=== PATIENT | female | born 1950 | race Caucasian/White ===

== ENCOUNTER → 2017-08-26 | Outpatient (CLI) | payer OTHER ==
[~2017-08-26] MED LIST: AMIT25TA19 PO; ATOR-24 PO; CLOP1TAB15 PO; DIAZ5TAB PO; ENAL10TA88 PO; FLUO40CA8 PO; GLC850 PO; IBUP-1428 PO; METO25TA3 PO; POTA-327 PO; PREG200C PO
--- NOTE | 2017-08-26 09:55 | DIAGNOSTIC IMAGING REPORT ---
CHEST 2 VIEWS ROUTINE CLINICAL HISTORY: 67 years-old Female presenting with I25.10 CAD in [place] [id number]. TECHNIQUE: PA and lateral views of the chest were obtained. COMPARISON: 10/10/2014. FINDINGS: Atherosclerosis of the aortic arch. Cardiac silhouette normal in size. Coronary artery stent or coronary artery calcification noted. Lungs and pleural spaces clear. Degenerative changes of the thoracic spine. Upper abdomen normal. Surgical clips in the right axilla. IMPRESSION: 1. No acute cardiopulmonary disease. Electronically signed by: Juan Carlos Das M.D. 08/26/2017 9:54 AM Dictated Date/Time: 08/26/2017 9:53 AM
== END | disposition home or self-care (01) ==
LOC: C.RAD1850 09:36
PROVIDERS: ATTEND Internal Medicine Pulmonary Disease
DX: I25.10 Atherosclerotic heart disease of native coronary artery without angina pectoris (principal)

== ENCOUNTER → 2017-09-11 | Outpatient (CLI) | payer OTHER ==
[2017-09-11 15:18] LABS: BASO % 0.5 %; BASO ABS # 0.02 K/uL (0-0.2); EOS % 2.1 %; EOS ABS # 0.09 K/uL (0-0.5); HEMATOCRIT 32.2 % (37-47); HEMOGLOBIN 10.2 g/dL (12.0-16.0); IG# 0.01 K/uL (0.00-0.02); LYMPH % 28.5 %; MEAN CELL VOLUME 62.8 fL (80-100); MEAN CORPUSCULAR HEMOGLOBIN 19.9 pg (25-34); MEAN CORPUSCULAR HGB CONC 31.7 g/dl (32-36); MONO % 10.5 %; MONO ABS # 0.44 K/uL (0.11-0.59); NEUT % 58.2 %; NEUT ABS # 2.45 K/uL (1.4-6.5); NUCLEATED RED BLOOD CELL ABS 0.02 K/uL (0-0); PLATELET COUNT 210 K/uL (130-400); RED CELL DISTRIBUTION WIDTH CV 18.1 % (11.5-14.5); RED CELL DISTRIBUTION WIDTH SD 38.8 fL (36.4-46.3); WHITE BLOOD COUNT 4.21 K/uL (4.8-10.8)
[2017-09-11 15:59] LABS: ALT/SGPT 36 U/L (12-78); AST/SGOT 22 U/L (15-37); BLOOD UREA NITROGEN 26 mg/dl (7-18); CALCIUM 9.3 mg/dl (8.5-10.1); CARBON DIOXIDE 22 mmol/L (21-32); CREATININE 1.17 mg/dl (0.60-1.20); GLUCOSE 86 mg/dl (70-99); POTASSIUM 4.4 mmol/L (3.5-5.1); SODIUM 137 mmol/L (136-145)
[2017-09-12 07:20] LABS: HEMOGLOBIN A1C 5.6 % (4.5-5.6)
== END | disposition home or self-care (01) ==
LOC: C.LAB1850 14:01
PROVIDERS: ATTEND Internal Medicine
DX: E03.9 Hypothyroidism, unspecified (principal); E78.00 Pure hypercholesterolemia, unspecified; D64.9 Anemia, unspecified; E11.9 Type 2 diabetes mellitus without complications; N28.9 Disorder of kidney and ureter, unspecified

== ENCOUNTER 2019-08-31 14:51 | Observation (INO) ==
--- NOTE | 2019-08-31 16:26 | XRay Report ---
XR chest 1V portable CLINICAL HISTORY: Dyspnea dyspnea COMPARISON STUDY: 05/03/2013 FINDINGS: Minimal platelike atelectasis left base. Lungs otherwise appear clear. Diaphragms are deon h. Prior right acromioclavicular operative change. IMPRESSION: Platelike atelectasis left base. Otherwise negative study. ACT 112: Negative or not required by law. The above report was generated using voice recognition software. It may contain grammatical, syntax or spelling errors. Electronically signed by: Kaz Shelton M.D. 08/31/2019 4:24 PM
--- NOTE | 2019-08-31 16:45 | Electrocardiogram Report ---
Test Reason : Blood Pressure : / mmHG Vent. Rate : 102 BPM Atrial Rate : 102 BPM P-R Int : 160 ms QRS Dur : 080 ms QT Int : 340 ms P-R-T Axes : 074 -05 069 degrees QTc Int : 443 ms Sinus tachycardia Possible Left atrial enlargement Borderline ECG When compared with ECG of 12-APR-2011 17:55, Vent. rate has increased BY 42 BPM Nonspecific T wave abnormality no longer evident in Inferior leads Confirmed by Surinder Ramos ([id number]) on 08/31/2019 4:44:51 PM Referred By: Confirmed By:Surinder Ramos
[2019-08-31 17:13] LABS: Basophils # (auto) 0.02 K/uL (0-0.2); Basophils % (auto) 0.3 %; Eosinophils # (auto) 0.13 K/uL (0-0.5); Eosinophils % (auto) 2.2 %; Hematocrit (blood only) 33.6 % (37-47); Hemoglobin 10.8 g/dL (12.0-16.0); Immature Granulocytes # (auto) 0.01 K/uL (0.00-0.02); Immature Granulocytes % (auto) 0.2 %; Lymphocytes % (auto) 39.1 %; Mean Corpuscular Hemoglobin 20.3 pg (25-34); Mean Corpuscular Hgb Conc 32.1 g/dL (32-36); Mean Corpuscular Volume 63.3 fL (80-100); Monocytes % (auto) 8.5 %; Neutrophils # (auto) 2.92 K/uL (1.4-6.5); Neutrophils % (auto) 49.7 %; Platelet Count 229 K/uL (130-400); RDW Coefficient of Variation 18.6 % (11.5-14.5); Red Blood Count 5.31 M/uL (4.2-5.4); White Blood Count 5.88 K/uL (4.8-10.8)
[2019-08-31 17:29] LABS: Alanine Aminotransferase 36 U/L (12-78); Albumin Level 3.6 gm/dl (3.4-5.0); Aspartate Aminotransferase 24 U/L (15-37); BUN Creatinine Ratio 25.3 (10-20); Blood Urea Nitrogen 28 mg/dl (7-18); Calcium 9.5 mg/dl (8.5-10.1); Carbon Dioxide 24 mmol/L (21-32); Chloride 103 mmol/L (98-107); Creatinine Clr Calc Pharmacy 53.5 ml/min; Est GFR (African American) 59.1; Glucose 128 mg/dl (70-99); Magnesium 1.3 mg/dl (1.8-2.4); Potassium 4.2 mmol/L (3.5-5.1); Sodium 136 mmol/L (136-145)
[2019-08-31 17:34] LABS: Alkaline Phosphatase 69 U/L (45-117); Bilirubin,Total 0.4 mg/dl (0.2-1); Globulin 3.5 gm/dl (2.5-4.0); NT Pro B Type Natriuretic Pept 82 pg/ml (0-900); Total Protein 7.1 gm/dl (6.4-8.2); Troponin I < 0.015 ng/ml (0-0.045)
[2019-08-31 17:43] LABS: Hypochromasia Present; Microcytosis Present; Ovalocytes 2+; Poikilocytosis Present; Polychromasia 1+; Schistocytes Occasional
[2019-08-31] MEDS ORDERED: OPTIRAY 320 125ml IV PRN (17:51)
[2019-08-31] MEDS ORDERED: MAGNESIUM OXIDE 400 MG TAB PO STA (17:51)
[2019-08-31] MEDS ORDERED: SODIUM CHLORIDE 0.9% 1000ML 500 ML IV ONE (17:51)
--- NOTE | 2019-08-31 18:02 | CT Scan Report ---
CT angio chest PE protocol CT DOSE: 358.10 mGy.cm HISTORY: Chest pain. Dyspnea. h/o PEs w/ worsening exertional dyspnea TECHNIQUE: Multiaxial CT images of the chest were performed following the intravenous administration of contrast to evaluate the pulmonary arteries. Maximal intensity projection images were also obtaine d. A dose lowering technique was utilized adhering to the principles of ALARA. COMPARISON STUDY: Chest x-ray 08/31/2019 FINDINGS: There is a normal caliber thoracic aorta with no evidence for dissection. There is no evide nce for pulmonary embolus. No pleural effusions. No pneumothorax. The liver and spleen are unremarkab le. No mediastinal or hilar lymphadenopathy. The central airways are patent. The lungs are clear. Sca ttered bibasilar atelectatic and/or pleural reactive change. IMPRESSION: 1. No evidence for pulmonary embolus. 2. Lungs are considered clear. 3. Minimal scattered bibasilar atelectatic change. ACT 112: Negative or not required by law. The above report was generated using voice recognition software. It may contain grammatical, syntax or spelling errors. Electronically signed by: Kaz Shelton M.D. 08/31/2019 6:00 PM
[2019-08-31] MEDS ORDERED: ASPIRIN CHEW 324 MG PO STA (20:01)
[2019-08-31] MEDS ORDERED: NITROGLYCERIN SL 0.4 MG/TAB TAB SL STA (20:01)
--- NOTE | 2019-08-31 20:45 | Emergency Department Note ---
Entered by Cheyenne Malloy acting as a scribe for History of Present Illness General Chief complaint: Shortness of Breath/Dyspnea Stated complaint: SOB, FAINTING FEELING Time Seen by Provider: 08/31/19 16:04 Source: patient History of Present Illness Provider complaint: Shortness of Breath/Dyspnea Onset (ago): day(s) 2 Location: chest Radiation: non-radiation Relieved By: + none Exacerbated By: + none Associated symptoms: + chest pain and + syncope; no cough and no fever/chills The patient is a 69 year old female w/ PMHx of Leiden mutation, pulmonary embolism, DVT, anemia, asthma, CAD, depression, fibromyalgia, hypercholesterolemia, hypertension, hypothyroidism, osteopenia, renal insufficiency, sarcoidosis of lung, and type II diabetes who presents to the ED w/ CC of shortness of breath/dyspnea beginning 2 days ago. The patient states that she was diagnosed with pulmonary embolisms and a DVT at [facility] and discharged on August 21. On July 09 the patient notes that she had a meniscus repair and began noticing shortness of breath afterwards. The patient states that her symptoms are not relieved nor exacerbated by anything specific. The patient reports experiencing chest pain and has been having syncopal episodes for the last 2 days. The patient denies experiencing any cough or fever/chills. The patient notes that she was switched from 10mg to 5mg of Eliquis and notes that her symptoms are similar to when she had a heart blockage. Home Medications Home Medications Medication Instructions Recorded Confirmed Type cholecalciferol (vitamin D3) 125 5,000 units PO BID cap 04/02/19 08/31/19 History mcg (5,000 unit) capsule enalapril maleate 5 mg tablet 5 mg PO HS #90 tab 04/02/19 08/31/19 History hydroxyzine HCl 50 mg tablet 50 mg PO QID PRN tab 04/02/19 08/31/19 History multivitamin 1 tab PO QAM 04/02/19 08/31/19 History diazepam 10 mg tablet 10 - 20 mg PO UD PRN tab 05/04/19 08/31/19 History metoprolol succinate 25 mg 25 mg PO QAM 05/04/19 08/31/19 History tablet,extended release 24 hr nitroglycerin 0.4 mg sublingual 0.4 mg SL Q5M PRN #30 tab 05/04/19 08/31/19 History tablet hydrocodone 10 mg-acetaminophen 1 tab PO Q4H PRN tab 05/05/19 08/31/19 History 325 mg tablet apixaban 5 mg tablet 5 mg PO BID #180 tab 08/24/19 08/31/19 Rx baclofen 10 mg tablet 10 mg PO TID PRN 08/24/19 08/31/19 History cyclobenzaprine 10 mg tablet 20 mg PO HS #60 tab 08/24/19 08/31/19 Rx esketamine 84 mg (28 mg x 3) nasal 0 mg INTNAS .Q3W 08/24/19 08/31/19 History spray nystatin-triamcinolone 100,000 1 appln TOPICAL BID PRN #60 gm 08/24/19 08/31/19 Rx unit/gram-0.1 % topical ointment atorvastatin 40 mg PO HS 08/31/19 08/31/19 History clopidogrel 75 mg PO QAM 08/31/19 08/31/19 History coenzyme Q10 [Co Q-10] 100 mg PO BID 08/31/19 08/31/19 History fluoxetine [Prozac] 80 mg PO QAM 08/31/19 08/31/19 History fluticasone propion-salmeterol 1 inh INHALATION BID PRN 08/31/19 08/31/19 History [Advair Diskus] levothyroxine 75 mcg PO QAM 08/31/19 08/31/19 History liothyronine 15 mcg PO QAM 08/31/19 08/31/19 History metformin 1,000 mg PO BIDM 08/31/19 08/31/19 History suvorexant 20 mg PO HS 08/31/19 08/31/19 History Allergies Allergy/AdvReac Type Severity Reaction Status Date / Time nickel Allergy Mild rash Verified 08/31/19 18:45 adhesive Allergy Unknown started Verified 08/31/19 18:45 sarcoidosis up cefazolin Allergy Unknown UNKNOWN Verified 08/31/19 18:45 gabapentin Allergy Unknown Unknown Verified 08/31/19 18:45 nitrofurantoin Allergy Unknown Unknown Verified 08/31/19 18:45 [From Macrobid] pregabalin [From Lyrica] Allergy Unknown Unknown Verified 08/31/19 18:45 tramadol Allergy Unknown ITCH Verified 08/31/19 18:45 ibuprofen Allergy Unknown Verified 08/31/19 18:45 amoxicillin AdvReac Mild diarrhea Verified 08/31/19 18:45 clavulanic acid AdvReac Mild diarrhea Verified 08/31/19 18:45 Past Med/Surg History Medical History Adenomatous polyp of colon (Acute) Adiposis dolorosa (Acute) Anxiety Asthma (Acute) Bleeding disorder Breast cancer Stage 2A HER+ - rx bilateral mastectomy 2001, 2003 CAD in [place] artery (Acute) Depression (Acute) Endometriosis Factor 5 Leiden mutation, heterozygous Fibroids Fibromyalgia (Acute) Hematuria History of chemotherapy History of radiation therapy Hypercholesterolemia (Acute) Hypertension (Acute) Hypothyroidism (Acute) Insomnia (Acute) Lumbar spinal stenosis (Acute) Mild chronic anemia (Acute) Osteopenia (Acute) Painful intercourse PTSD (post-traumatic stress disorder) Pulmonary embolus admitted 08/20-08/22 [facility] Renal insufficiency (Acute) Sarcoidosis of lung (Acute) Sleep apnea (Acute) Thalassemia syndrome (Acute) Thyroid nodule (Acute) Type 2 diabetes mellitus (Acute) Surgical History S/P cardiac catheterization S/P hysterectomy S/P laminectomy S/P mastectomy S/P rotator cuff repair S/P skin biopsy S/P tonsillectomy Status post wisdom tooth extraction Family History Uncle Colorectal cancer Father Dementia Mother Diabetes Grandmother (Maternal) Breast cancer Grandmother (Paternal) Breast cancer Other Anemia Anxiety Depression Drinking problem Family history of bleeding or clotting disorder Fibroids Gestational diabetes Premature labor Denies family history of Cervical cancer Ovarian cancer Prostate cancer Uterine cancer Social History Preferred Language: Guatemalan Communication Ability: Effective Visual Impairment: No Limitations Hearing Ability: Normal Ingredient Handler Required: No Beliefs That Will Affect Care: None marital status: Current Living Situation: Spouse current occupational status: unemployed Feels Safe at Home: Yes Smoking Status: Never smoker Hx Alcohol Use: No Hx Substance Use: No Childhood Exposure to Second-Hand Smoke: Yes Dental Care, Regularly: Yes Physical Activity Frequency: Does not Exercise Seatbelt Use: always Review of Systems See HPI for pertinent positives & negatives. and A total of 10 systems reviewed and were otherwise negative Physical Exam Vital Signs Vital Signs - 24 hr 08/31/19 15:18 08/31/19 16:32 08/31/19 20:12 Temperature 36.7 C Temperature Source Oral Pulse Rate 97 H 93 H 87 Pulse Rate [Finger] 96 H Pulse Rate from SpO2 Sensor 87 Respiratory Rate 22 18 18 Respiratory Effort / Characteristics Non-Labored Respiratory Depth Normal Respiratory Pattern Regular Blood Pressure 170/109 H 126/84 124/77 Blood Pressure [Left Arm] 126/84 Blood Pressure Mean 129 101 97 Blood Pressure Mean [Left Arm] 98 Blood Pressure Position Lying Pulse Oximetry 99 98 96 Oxygen Delivery Method Room Air Sepsis Recent Fever Within 48 Hours No Sepsis New/Unexplained Change in Mental Status No Sepsis Action Taken by Nursing No Action Required 08/31/19 20:14 08/31/19 20:15 08/31/19 20:21 Temperature Temperature Source Pulse Rate 87 93 H Pulse Rate [Finger] 83 Pulse Rate from SpO2 Sensor 86 93 H Respiratory Rate 18 18 18 Respiratory Effort / Characteristics Respiratory Depth Respiratory Pattern Blood Pressure 124/74 93/59 L Blood Pressure [Left Arm] 124/77 Blood Pressure Mean 99 73 Blood Pressure Mean [Left Arm] 92 Blood Pressure Position Pulse Oximetry 96 96 96 Oxygen Delivery Method Room Air Sepsis Recent Fever Within 48 Hours Sepsis New/Unexplained Change in Mental Status Sepsis Action Taken by Nursing 08/31/19 20:25 08/31/19 20:30 08/31/19 20:35 Temperature Temperature Source Pulse Rate 92 H 85 82 Pulse Rate [Finger] Pulse Rate from SpO2 Sensor 92 H 85 83 Respiratory Rate 18 20 19 Respiratory Effort / Characteristics Respiratory Depth Respiratory Pattern Blood Pressure 107/64 130/80 132/82 Blood Pressure [Left Arm] Blood Pressure Mean 82 90 92 Blood Pressure Mean [Left Arm] Blood Pressure Position Pulse Oximetry 96 96 95 Oxygen Delivery Method Sepsis Recent Fever Within 48 Hours Sepsis New/Unexplained Change in Mental Status Sepsis Action Taken by Nursing 08/31/19 20:40 08/31/19 20:45 08/31/19 21:00 Temperature Temperature Source Pulse Rate 82 89 84 Pulse Rate [Finger] Pulse Rate from SpO2 Sensor 82 89 84 Respiratory Rate 19 20 20 Respiratory Effort / Characteristics Respiratory Depth Respiratory Pattern Blood Pressure 129/86 122/106 H 144/89 H Blood Pressure [Left Arm] Blood Pressure Mean 97 112 95 Blood Pressure Mean [Left Arm] Blood Pressure Position Pulse Oximetry 95 97 95 Oxygen Delivery Method Sepsis Recent Fever Within 48 Hours Sepsis New/Unexplained Change in Mental Status Sepsis Action Taken by Nursing 08/31/19 21:05 08/31/19 21:10 Temperature Temperature Source Pulse Rate 85 84 Pulse Rate [Finger] Pulse Rate from SpO2 Sensor 84 84 Respiratory Rate 20 18 Respiratory Effort / Characteristics Respiratory Depth Respiratory Pattern Blood Pressure 124/75 114/88 Blood Pressure [Left Arm] Blood Pressure Mean 87 96 Blood Pressure Mean [Left Arm] Blood Pressure Position Pulse Oximetry 97 97 Oxygen Delivery Method Sepsis Recent Fever Within 48 Hours Sepsis New/Unexplained Change in Mental Status Sepsis Action Taken by Nursing GENERAL: Well appearing, well nourished, NAD, non-toxic, wearing glasses. EYE EXAM: Normal conjunctiva. PERRL, no anisocoria and EOM's grossly intact w/o pain. OROPHARYNX: Moist mucous membranes. Grossly normal dentition. NECK: Supple, no nuchal rigidity, no adenopathy, non-tender. No signs of meningismus. LUNGS: Clear to auscultation. Normal chest wall mechanics. HEART: NSR, no MRG. ABDOMEN: Abdomen soft, non-tender, normo-active bowel sounds, no masses, no rebound or guarding. BACK: No CVA TTP. SKIN: No rashes and no bruising. UPPER EXTREMITIES: Upper extremities are grossly normal. LOWER EXTREMITIES: No pitting edema. No calf pain. Negative Vidal's sign. NEURO EXAM: A&O x3, cranial nerves II-XII grossly intact, normal speech, moves all 4 extremities on command w/o issue. Course Course 1608: Past medical records reviewed. The patient was evaluated in room B10. A complete history and physical exam was performed. 1838: I reevaluated and discussed test results with the patient. 1933: I spoke with Dr. Gee- Cardiology about the patient's case and he recommends she stay in the hospital for further evaluation. 2001: I reevaluated patient again and she is still experiencing chest discomfort so she will be given an Aspirin and Nitroglycerin. I spoke with Dr. Dixon- Hospitalist about the patient's case and he will accept the patient for further evaluation. Administered Medications Acetaminophen (Tylenol) 650 mg PO Q4H PRN PRN Reason: Pain or Fever Stop: 09/30/19 22:35 Last Admin: 09/01/19 09:36 Dose: 325 mg Documented by: [id number] Hydrocodone Bitart/Acetaminophen ([place] 10/325) 1 tab PO Q4H PRN PRN Reason: Pain Stop: 09/14/19 22:35 Last Admin: 09/01/19 09:35 Dose: 1 tab Documented by: [id number] Apixaban (Eliquis) 5 mg PO BID [facility] Stop: 09/30/19 22:35 Last Admin: 09/01/19 08:09 Dose: 5 mg Documented by: [id number] Admin: 08/31/19 23:17 Dose: 5 mg Documented by: [id number] Clopidogrel Bisulfate (Plavix) 75 mg PO [facility] Stop: 10/01/19 08:59 Last Admin: 09/01/19 08:08 Dose: 75 mg Documented by: [id number] Cyclobenzaprine HCl (Flexeril) 10 mg PO [facility] Stop: 09/30/19 22:59 Last Admin: 08/31/19 23:17 Dose: 10 mg Documented by: [id number] Fluoxetine HCl (Prozac) 80 mg PO [facility] Stop: 10/01/19 08:59 Last Admin: 09/01/19 08:08 Dose: 80 mg Documented by: [id number] Ioversol (Optiray 320 125ml) 119 ml IV ONCE PRN PRN Reason: Interaction Checking Stop: 09/04/19 17:50 Last Admin: 08/31/19 17:51 Dose: 119 ml Documented by: [id number] [facility] Stop: 10/01/19 06:29 Last Admin: 09/01/19 06:15 Dose: 75 mcg Documented by: [id number] Liothyronine Sodium (Cytomel) 15 mcg PO [facility] Stop: 10/01/19 08:59 Last Admin: 09/01/19 08:09 Dose: 15 mcg Documented by: [id number] Metoprolol Succinate (Toprol Xl) 25 mg PO [facility] Stop: 10/01/19 08:59 Last Admin: 09/01/19 08:08 Dose: 25 mg Documented by: [id number] Multivitamins (Multivitamin Tab) 1 tab PO [facility] Stop: 10/01/19 08:59 Last Admin: 09/01/19 08:09 Dose: 1 tab Documented by: [id number] Vitamin D (Vitamin D3) 5,000 units PO BID [facility] Stop: 09/30/19 22:29 Last Admin: 09/01/19 08:08 Dose: 5,000 units Documented by: [id number] Admin: 08/31/19 23:17 Dose: 5,000 units Documented by: [id number] Zolpidem Tartrate (Ambien) 10 mg PO HS PRN PRN Reason: Sleep Stop: 09/30/19 22:49 Last Admin: 08/31/19 23:17 Dose: 10 mg Documented by: [id number] Discontinued Medications Aspirin (Aspirin) 324 mg PO NOW STA Stop: 08/31/19 20:02 Last Admin: 08/31/19 20:13 Dose: 324 mg Documented by: [id number] Sodium Chloride (Nss 1000ml) 500 mls @ 999 mls/hr IV .Q31M ONE Stop: 08/31/19 18:21 Last Infusion: 08/31/19 20:14 Dose: 0 mls/hr Documented by: [id number] Admin: 08/31/19 18:13 Dose: 999 mls/hr Documented by: [id number] Magnesium Oxide (Mag-Ox) 800 mg PO NOW STA Stop: 08/31/19 17:52 Last Admin: 08/31/19 18:13 Dose: 800 mg Documented by: [id number] Nitroglycerin (Nitrostat) 0.4 mg SL NOW STA Stop: 08/31/19 20:02 Last Admin: 08/31/19 20:13 Dose: 0.4 mg Documented by: [id number] Medical Decision Making Differential Diagnosis Differential diagnosis: Etiologies such as infections, reactive airway disease, COPD, pneumonia, pleural effusion, pulmonary edema, ARDS, pneumothorax, CHF, cardiac ischemia, cardiac tamponade, dysrhythmia, anemia, pulmonary embolism, musculoskeletal, gastrointestinal process, as well as others were entertained. Medical Records Attestation: I reviewed the patient's medical records. Home Medications Current Medication List: was personally reviewed by me Laboratory Data Attestation: I reviewed the patient's lab results. Result diagrams: 09/01/19 06:37 09/01/19 06:37 Lab Results 08/31/19 08/31/19 08/31/19 Range/Units 17:01 17:01 17:01 WBC 5.88 (4.8-10.8) K/uL RBC 5.31 (4.2-5.4) M/uL Hgb 10.8 L (12.0-16.0) g/dL Hct 33.6 L (37-47) % MCV 63.3 L (80-100) fL MCH 20.3 L (25-34) pg MCHC 32.1 (32-36) g/dL RDW Std Deviation 42.0 (36.4-46.3) fL RDW Coeff of Meghana 18.6 H (11.5-14.5) % Plt Count 229 (130-400) K/uL Immature Gran % (Auto) 0.2 % Neut % (Auto) 49.7 % Lymph % (Auto) 39.1 % Banks % (Auto) 8.5 % Eos % (Auto) 2.2 % Baso % (Auto) 0.3 % Immature Gran # (Auto) 0.01 (0.00-0.02) K/uL Neut # (Auto) 2.92 (1.4-6.5) K/uL Lymph # (Auto) 2.30 (1.2-3.4) K/uL Banks # (Auto) 0.50 (0.11-0.59) K/uL Eos # (Auto) 0.13 (0-0.5) K/uL Baso # (Auto) 0.02 (0-0.2) K/uL Polychromasia 1+ Hypochromasia Present Poikilocytosis Present Microcytosis Present Ovalocytes 2+ Schistocytes Occasional PT Cancelled INR Cancelled APTT Cancelled PTT Ratio Cancelled Sodium 136 (136-145) mmol/L Potassium 4.2 (3.5-5.1) mmol/L Chloride 103 (98-107) mmol/L Carbon Dioxide 24 (21-32) mmol/L Anion Gap 9.0 (3-11) BUN 28 H (7-18) mg/dl Creatinine 1.11 (0.6-1.2) mg/dl Est Cr Clr Drug Dosing 53.5 ml/min Est GFR ( Amer) 59.1 Est GFR (Non-Af Amer) 51.0 BUN/Creatinine Ratio 25.3 H (10-20) Glucose 128 H (70-99) mg/dl Calcium 9.5 (8.5-10.1) mg/dl Magnesium 1.3 L (1.8-2.4) mg/dl Total Bilirubin 0.4 (0.2-1) mg/dl AST 24 (15-37) U/L ALT 36 (12-78) U/L Alkaline Phosphatase 69 (45-117) U/L Troponin I < 0.015 (0-0.045) ng/ml NT-Pro-B Natriuret Pep 82 (0-900) pg/ml Total Protein 7.1 (6.4-8.2) gm/dl Albumin 3.6 (3.4-5.0) gm/dl Globulin 3.5 (2.5-4.0) gm/dl Albumin/Globulin Ratio 1.0 (0.9-2) /09/16 Range/Units 18:32 WBC (4.8-10.8) K/uL RBC (4.2-5.4) M/uL Hgb (12.0-16.0) g/dL Hct (37-47) % MCV (80-100) fL MCH (25-34) pg MCHC (32-36) g/dL RDW Std Deviation (36.4-46.3) fL RDW Coeff of Meghana (11.5-14.5) % Plt Count (130-400) K/uL Immature Gran % (Auto) % Neut % (Auto) % Lymph % (Auto) % Banks % (Auto) % Eos % (Auto) % Baso % (Auto) % Immature Gran # (Auto) (0.00-0.02) K/uL Neut # (Auto) (1.4-6.5) K/uL Lymph # (Auto) (1.2-3.4) K/uL Banks # (Auto) (0.11-0.59) K/uL Eos # (Auto) (0-0.5) K/uL Baso # (Auto) (0-0.2) K/uL Polychromasia Hypochromasia Poikilocytosis Microcytosis Ovalocytes Schistocytes PT INR APTT PTT Ratio Sodium (136-145) mmol/L Potassium (3.5-5.1) mmol/L Chloride (98-107) mmol/L Carbon Dioxide (21-32) mmol/L Anion Gap (3-11) BUN (7-18) mg/dl Creatinine (0.6-1.2) mg/dl Est Cr Clr Drug Dosing ml/min Est GFR ( Amer) Est GFR (Non-Af Amer) BUN/Creatinine Ratio (10-20) Glucose (70-99) mg/dl Calcium (8.5-10.1) mg/dl Magnesium (1.8-2.4) mg/dl Total Bilirubin (0.2-1) mg/dl AST (15-37) U/L ALT (12-78) U/L Alkaline Phosphatase (45-117) U/L Troponin I 0.019 (0-0.045) ng/ml NT-Pro-B Natriuret Pep (0-900) pg/ml Total Protein (6.4-8.2) gm/dl Albumin (3.4-5.0) gm/dl Globulin (2.5-4.0) gm/dl Albumin/Globulin Ratio (0.9-2) Imaging Data Radiologist's Impression: Radiology results as stated below per my review and the radiologist's interpretation: XR chest 1V portable CLINICAL HISTORY: Dyspnea dyspnea COMPARISON STUDY: 05/03/2013 FINDINGS: Minimal platelike atelectasis left base. Lungs otherwise appear clear. Diaphragms are smooth. Prior right acromioclavicular operative change. IMPRESSION: Platelike atelectasis left base. Otherwise negative study. ACT 112: Negative or not required by law. The above report was generated using voice recognition software. It may contain grammatical, syntax or spelling errors. Electronically signed by: Kaz Shelton M.D. 08/31/2019 4:[address] angio chest PE protocol CT DOSE: 358.10 mGy.cm HISTORY: Chest pain. Dyspnea. h/o PEs w/ worsening exertional dyspnea TECHNIQUE: Multiaxial CT images of the chest were performed following the intravenous administration of contrast to evaluate the pulmonary arteries. Maximal intensity projection images were also obtained. A dose lowering technique was utilized adhering to the principles of ALARA. COMPARISON STUDY: Chest x-ray 08/31/2019 FINDINGS: There is a normal caliber thoracic aorta with no evidence for dissection. There is no evidence for pulmonary embolus. No pleural effusions. No pneumothorax. The liver and spleen are unremarkable. No mediastinal or hilar lymphadenopathy. The central airways are patent. The lungs are clear. Scattered bibasilar atelectatic and/or pleural reactive change. IMPRESSION: 1. No evidence for pulmonary embolus. 2. Lungs are considered clear. 3. Minimal scattered bibasilar atelectatic change. ACT 112: Negative or not required by law. The above report was generated using voice recognition software. It may contain grammatical, syntax or spelling errors. Electronically signed by: Kaz Shelton M.D. 08/31/2019 6:00 PM ECG Data Attestation: I personally reviewed and interpreted this ECG as follows: Indication: + SOB/dyspnea Rate (beats per minute): 102 Rhythm: + sinus tachycardia ECG [place]: + Normal ECG ST segments: + T-wave inversions (aVL); no ST depression and no ST elevation ECG Findings: + Other (Normal intervals) Comparison ECG Date: from (March 2011) Change: the following changes noted (Rate is improved by 42 bpm) Blood Pressure Blood Pressure Findings: Elevated blood pressure Blood Pressure Disposition: further management by hospitalist AKIRA Narrative The patient is a 69 year old female w/ PMHx of Leiden mutation, pulmonary embolism, DVT, anemia, asthma, CAD, depression, fibromyalgia, hypercholesterolemia, hypertension, hypothyroidism, osteopenia, renal insuffic iency, sarcoidosis of lung, and type II diabetes who presents to the ED w/ CC of shortness of breath/dyspnea beginning 2 days ago. 1610: Continuous Cardiac Monitoring: An order was placed for continuous cardiac monitoring. The monitor shows a rate of 102 with sinus tachycardia. Patient was seen and evaluated at the bedside. The patient was presented with some shortness of breath and the patient was recently diagnosed with bilateral PEs and left lower extremity DVT. I did obtain some outpatient records which show that the patient was diagnosed with bilateral PEs but I did not see anything further with regard to the report or the location. The patient did a blood work completed along with a CT Cassandra of the chest. CT of the Cassandra of the chest is negative. Patient's EKG does not show any acute changes but given that the patient states that her symptoms are similar to when she had a prior MN requiring stenting a repeat troponin was ordered. Repeat troponin while not elevated is detectable compared to undetectable with prior. Given this I did speak with the on-call capacity planner who recommended inpatient treatment, stress test and further trending of cardiac enzymes. I did speak the on-call hospitalist agreed to further evaluate treat the patient. The patient was given aspirin as well as 1 sublingual nitro she complained of some very mild dull jose e st discomfort. Impression & Plan Atypical chest pain, History of coronary artery disease Discharge Plan Visit Data *Final* Discharge Date/Time: 08/31/19 22:23 Chief Complaint: Shortness of Breath/Dyspnea Stated Complaint: SOB, FAINTING FEELING ED Provider: Robert Morrison Discharge Problem: Atypical chest pain, History of coronary artery disease Patient Disposition: Admitted As Inpatient Discharge Instructions Interventions: ED Discharge Assessment Last Done: 08/31/19 22:23 The scribe's documentation has been prepared under my direction and personally reviewed by me in its entirety. I confirm that the note above accurately reflects all work, treatment, procedures, and medical decision making performed by me.
--- NOTE | 2019-08-31 22:08 | History & Physical Report ---
Date of Service August 31, 2019 Assessment & Plan (1) Atypical chest pain: Atypical chest pain/CAD- The patient will be admitted to telemetry for serial cardiac enzymes, serial EKG's, cardiac rhythm monitoring and a 2-D echocardiogram with Dopplers. Follows with Dr. Ramos, who will be consulted. Present on Admission?: Yes (2) CAD in [place] artery: See above Present on Admission?: Yes (3) Pulmonary embolus: Patient was diagnosed with bilateral pulmonary emboli and right lower extremity DVT on 08/21/2019. She was started on apixaban at that time, is presently on 5 mg p.o. twice daily. CTA chest is negative for PE at this time. Determination of adequate length of time for apixaban will be necessary. Present on Admission?: Yes (4) Asthma: Continue Advair Diskus Present on Admission?: Yes (5) Depression: Depression/fibromyalgia- Continue baclofen, cyclobenzaprine, diazepam, fluoxetine, hydroxyzine and suvorexant. Present on Admission?: Yes (6) Fibromyalgia: See above Present on Admission?: Yes (7) Hypertension: See above Present on Admission?: Yes (8) Hypothyroidism: Continue levothyroxine 75 mcg and liothyronine 15 mcg daily Present on Admission?: Yes History of Present Illness Chief Complaint: Patient presents to the emergency department with complaint of chest discomfort, which has her concerned for the possibility of coronary artery disease. Primary Care Provider: Surinder Curry MD The patient is a 69-year-old female with a past medical history including factor V Leiden mutation, pulmonary embolism, DVT of left lower extremity, colon polyps, chronic anemia, asthma, CAD and [place] coronary artery, depression, fibromyalgia, hypercholesterolemia, hypertension, hypothyroidism, renal insufficiency, thalassemia syndrome, thyroid nodule and diabetes mellitus type 2. She reports that she had developed severe right leg pain after a recent arthroscopic surgery, and was seen at [facility] emergency department, where she was diagnosed with bilateral PEs and left lower extremity DVT on 08/21/2019. Her symptoms today may be concerned regarding had a PE is redone, but also was concerned regarding possibility of recurrent heart disease. Of note, the patient has been on apixaban since 08/21, and CTA of the chest in the [facility] ED today is negative for PE. Allergies Allergy/AdvReac Type Severity Reaction Status Date / Time nickel Allergy Mild rash Verified 08/31/19 18:45 adhesive Allergy Unknown started Verified 08/31/19 18:45 sarcoidosis up cefazolin Allergy Unknown UNKNOWN Verified 08/31/19 18:45 gabapentin Allergy Unknown Unknown Verified 08/31/19 18:45 nitrofurantoin Allergy Unknown Unknown Verified 08/31/19 18:45 [From Macrobid] pregabalin [From Lyrica] Allergy Unknown Unknown Verified 08/31/19 18:45 tramadol Allergy Unknown ITCH Verified 08/31/19 18:45 ibuprofen Allergy Unknown Verified 08/31/19 18:45 amoxicillin AdvReac Mild diarrhea Verified 08/31/19 18:45 clavulanic acid AdvReac Mild diarrhea Verified 08/31/19 18:45 Home Medications Home Medications Medication Instructions Recorded Confirmed Type cholecalciferol (vitamin D3) 125 5,000 units PO BID cap 04/02/19 08/31/19 History mcg (5,000 unit) capsule enalapril maleate 5 mg tablet 5 mg PO HS #90 tab 04/02/19 08/31/19 History hydroxyzine HCl 50 mg tablet 50 mg PO QID PRN tab 04/02/19 08/31/19 History multivitamin 1 tab PO QAM 04/02/19 08/31/19 History diazepam 10 mg tablet 10 - 20 mg PO UD PRN tab 05/04/19 08/31/19 History metoprolol succinate 25 mg 25 mg PO QAM 05/04/19 08/31/19 History tablet,extended release 24 hr nitroglycerin 0.4 mg sublingual 0.4 mg SL Q5M PRN #30 tab 05/04/19 08/31/19 History tablet hydrocodone 10 mg-acetaminophen 1 tab PO Q4H PRN tab 05/05/19 08/31/19 History 325 mg tablet apixaban 5 mg tablet 5 mg PO BID #180 tab 08/24/19 08/31/19 Rx baclofen 10 mg tablet 10 mg PO TID PRN 08/24/19 08/31/19 History cyclobenzaprine 10 mg tablet 20 mg PO HS #60 tab 08/24/19 08/31/19 Rx esketamine 84 mg (28 mg x 3) nasal 0 mg INTNAS .Q3W 08/24/19 08/31/19 History spray nystatin-triamcinolone 100,000 1 appln TOPICAL BID PRN #60 gm 08/24/19 08/31/19 Rx unit/gram-0.1 % topical ointment atorvastatin 40 mg PO HS 08/31/19 08/31/19 History clopidogrel 75 mg PO QAM 08/31/19 08/31/19 History coenzyme Q10 [Co Q-10] 100 mg PO BID 08/31/19 08/31/19 History fluoxetine [Prozac] 80 mg PO QAM 08/31/19 08/31/19 History fluticasone propion-salmeterol 1 inh INHALATION BID PRN 08/31/19 08/31/19 History [Advair Diskus] levothyroxine 75 mcg PO QAM 08/31/19 08/31/19 History liothyronine 15 mcg PO QAM 08/31/19 08/31/19 History metformin 1,000 mg PO BIDM 08/31/19 08/31/19 History suvorexant 20 mg PO HS 08/31/19 08/31/19 History Past Med/Surg History Medical History Adenomatous polyp of colon (Acute) Adiposis dolorosa (Acute) Anxiety Asthma (Acute) Bleeding disorder Breast cancer Stage 2A HER+ - rx bilateral mastectomy 2001, 2003 CAD in [place] artery (Acute) Depression (Acute) Endometriosis Factor 5 Leiden mutation, heterozygous Fibroids Fibromyalgia (Acute) Hematuria History of chemotherapy History of radiation therapy Hypercholesterolemia (Acute) Hypertension (Acute) Hypothyroidism (Acute) Insomnia (Acute) Lumbar spinal stenosis (Acute) Mild chronic anemia (Acute) Osteopenia (Acute) Painful intercourse PTSD (post-traumatic stress disorder) Pulmonary embolus admitted 08/20-08/22 [facility] Renal insufficiency (Acute) Sarcoidosis of lung (Acute) Sleep apnea (Acute) Thalassemia syndrome (Acute) Thyroid nodule (Acute) Type 2 diabetes mellitus (Acute) Surgical History S/P cardiac catheterization S/P hysterectomy S/P laminectomy S/P mastectomy S/P rotator cuff repair S/P skin biopsy S/P tonsillectomy Status post wisdom tooth extraction Family History Uncle Colorectal cancer Father Dementia Mother Diabetes Grandmother (Maternal) Breast cancer Grandmother (Paternal) Breast cancer Other Anemia Anxiety Depression Drinking problem Family history of bleeding or clotting disorder Fibroids Gestational diabetes Premature labor Denies family history of Cervical cancer Ovarian cancer Prostate cancer Uterine cancer Social History Preferred Language: Surinamese Communication Ability: Effective Visual Impairment: No Limitations Hearing Ability: Normal Seismic Plotter Required: No Beliefs That Will Affect Care: None marital status: Current Living Situation: Spouse current occupational status: unemployed Feels Safe at Home: Yes Smoking Status: Never smoker Hx Alcohol Use: No Hx Substance Use: No Childhood Exposure to Second-Hand Smoke: Yes Dental Care, Regularly: Yes Physical Activity Frequency: Does not Exercise Seatbelt Use: always Review of Systems Review of Systems: The patient denies palpitations, cough, lower extremity swelling, sore throat, fevers, chills, sweats, weight change, fatigue, nausea, vomiting, diarrhea , constipation, abdominal pain, pelvic pain, blood in urine or stool, dysuria, urinary frequency or urgency, lightheadedness, dizziness, headache, memory loss, loss of consciousness, rash, abnormal bruising or bleeding, imbalance, focal or generalized weakness, numbness or tingling in arms or legs, generalized arthralgias or myalgias, back or neck pain, or night sweats. The review of systems is otherwise negative other than for that already noted above, and at least 10 systems have been reviewed. Physical Exam Physical Exam: The patient is awake, alert and oriented 3, well developed and well nourished, normocephalic and atraumatic, lying in bed and in no acute distress. HEENT--PERRL, EOMI, mucous membranes and oropharynx dry. Neck--supple. No JVD. No bruits. Thyroid normal, trachea midline, no adenopathy. Heart--normal S1 and S2. No murmurs, rubs or gallops. Lungs--clear bilaterally, no respiratory distress, no accessory muscle use. Abdomen--normal bowel sounds and soft. Nontender. Nondistended, no hernias or masses, no organomegaly. Extremities--no cyanosis or clubbing. No edema. There are good distal pulses b/l. Dermatologic--normal skin turgor, normal color, no abnormal lymph nodes, no rash. Neurologic--cranial nerves II through XII grossly intact. Rheumatologic--normal range of motion. Psychiatric--normal affect. Results & Data Vital Signs (Past 12 Hours) Vital Signs Temp Pulse Pulse Resp BP BP Pulse Ox 08/31/19 20:14 83 18 124/77 96 08/31/19 16:32 96 H 18 126/84 98 08/31/19 15:18 98.1 F 97 H 22 170/109 H 99 Laboratory Results Laboratory Results WBC 5.88 K/uL (4.8-10.8) 08/31/19 17: RBC 5.31 M/uL (4.2-5.4) 08/31/19 17: Hgb 10.8 g/dL (12.0-16.0) L 08/31/19 17: Hct 33.6 % (37-47) L 08/31/19 17:01 MCV 63.3 fL (80-100) L 08/31/19 17: MCH 20.3 pg (25-34) L 08/31/19 17: MCHC 32.1 g/dL (32-36) 08/31/19 17:01 RDW Std Deviation 42.0 fL (36.4-46.3) 08/31/19 17: RDW Coeff of Meghana 18.6 % (11.5-14.5) H 08/31/19 17:01 Plt Count 229 K/uL (130-400) 08/31/19 17:01 Immature Gran % (Auto) 0.2 % 08/31/19 17:01 Neut % (Auto) 49.7 % 08/31/19 17:01 Lymph % (Auto) 39.1 % 08/31/19 17:01 Coffee % (Auto) 8.5 % 08/31/19 17:01 Eos % (Auto) 2.2 % 08/31/19 17:01 Baso % (Auto) 0.3 % 08/31/19 17: Immature Gran # (Auto) 0.01 K/uL (0.00-0.02) 08/31/19 17:01 Neut # (Auto) 2.92 K/uL (1.4-6.5) 08/31/19 17:01 Lymph # (Auto) 2.30 K/uL (1.2-3.4) 08/31/19 17:01 Coffee # (Auto) 0.50 K/uL (0.11-0.59) 08/31/19 17:01 Eos # (Auto) 0.13 K/uL (0-0.5) 08/31/19 17:01 Baso # (Auto) 0.02 K/uL (0-0.2) 08/31/19 17:01 Polychromasia 1+ 08/31/19 17:01 Hypochromasia Present 08/31/19 17:01 Poikilocytosis Present 08/31/19 17:01 Microcytosis Present 08/31/19 17:01 Ovalocytes 2+ 08/31/19 17:01 Schistocytes Occasional 08/31/19 17:01 PT Cancelled 08/31/19 17:01 INR Cancelled 08/31/19 17:01 APTT Cancelled 08/31/19 17:01 PTT Ratio Cancelled 08/31/19 17:01 Sodium 136 mmol/L (136-145) 08/31/19 17:01 Potassium 4.2 mmol/L (3.5-5.1) 08/31/19 17:01 Chloride 103 mmol/L (98-107) 08/31/19 17:01 Carbon Dioxide 24 mmol/L (21-32) 08/31/19 17:01 Anion Gap 9.0 (3-11) 08/31/19 17:01 BUN 28 mg/dl (7-18) H 08/31/19 17:01 Creatinine 1.11 mg/dl (0.6-1.2) 08/31/19 17:01 Est Cr Clr Drug Dosing 53.5 ml/min 08/31/19 17:01 Est GFR ( Amer) 59.1 08/31/19 17:01 Est GFR (Non-Af Amer) 51.0 08/31/19 17:01 BUN/Creatinine Ratio 25.3 (10-20) H 08/31/19 17:01 Glucose 128 mg/dl (70-99) H 08/31/19 17:01 Calcium 9.5 mg/dl (8.5-10.1) 08/31/19 17:01 Magnesium 1.3 mg/dl (1.8-2.4) L 08/31/19 17:01 Total Bilirubin 0.4 mg/dl (0.2-1) 08/31/19 17:01 AST 24 U/L (15-37) 08/31/19 17:01 ALT 36 U/L (12-78) 08/31/19 17:01 Alkaline Phosphatase 69 U/L (45-117) 08/31/19 17:01 Troponin I 0.018 ng/ml (0-0.045) 08/31/19 22:50 NT-Pro-B Natriuret Pep 82 pg/ml (0-900) 08/31/19 17:01 Total Protein 7.1 gm/dl (6.4-8.2) 08/31/19 17:01 Albumin 3.6 gm/dl (3.4-5.0) 08/31/19 17:01 Globulin 3.5 gm/dl (2.5-4.0) 08/31/19 17:01 Albumin/Globulin Ratio 1.0 (0.9-2) 08/31/19 17:01 Diagnostic Findings [place], [place] [phone] CT Scan Report Patient: ANYA PRIETO Date: 08/31/19 MR#: [id number]: [id number] [facility] Acct ID:[id number]: Date: 1950[facility] Zip: [place] [address] Age: 69Location: ED Sex: F Room/Bed: Att Phy:Diagnosis: SOB, FAINTING FEELING Stefania Phy: Surinder Curry MDService Date: 08/31/19 Fam Phy:Interpreting Phy: Kaz Shelton MD Admit Phy: Ordering Phy: Robert Morrison MD cc: ~ CT angio chest PE protocol CT DOSE: 358.10 mGy.cm HISTORY: Chest pain. Dyspnea. h/o PEs w/ worsening exertional dyspnea TECHNIQUE: Multiaxial CT images of the chest were performed following the intravenous administration of contrast to evaluate the pulmonary arteries. Maximal intensity projection images were also obtained. A dose lowering technique was utilized adhering to the principles of ALARA. COMPARISON STUDY: Chest x-ray 08/31/2019 FINDINGS: There is a normal caliber thoracic aorta with no evidence for dissection. There is no evidence for pulmonary embolus. No pleural effusions. No pneumothorax. The liver and spleen are unremarkable. No mediastinal or hilar lymphadenopathy. The central airways are patent. The lungs are clear. Scattered bibasilar atelectatic and/or pleural reactive change. IMPRESSION: 1. No evidence for pulmonary embolus. 2. Lungs are considered clear. 3. Minimal scattered bibasilar atelectatic change. ACT 112: Negative or not required by law. The above report was generated using voice recognition software. It may contain grammatical, syntax or spelling errors. Electronically signed by: Kaz Shelton M.D. 08/31/2019 6:00 PM Dictated: 08/31/191756 Transcribed: 08/31/191756 [place], [place] [phone] XRay Report Patient: ANYA PRIETO Date: 08/31/19 MR#: [id number]: [id number] [facility] Acct ID:[id number]: Date: 1950[facility] Zip: [place] [address] Age: 69Location: ED Sex: F Room/Bed: Att Phy:Diagnosis: SOB, FAINTING FEELING Stefania Phy: Surinder Curry, MDService Date: 08/31/19 Fam Phy:Interpreting Phy: Kaz Shelton MD Admit Phy: Ordering Phy: Robert Morrison MD cc: ~ XR chest 1V portable CLINICAL HISTORY: Dyspnea dyspnea COMPARISON STUDY: 05/03/2013 FINDINGS: Minimal platelike atelectasis left base. Lungs otherwise appear clear. Diaphragms are smooth. Prior right acromioclavicular operative change. IMPRESSION: Platelike atelectasis left base. Otherwise negative study. ACT 112: Negative or not required by law. The above report was generated using voice recognition software. It may contain grammatical, syntax or spelling errors. Electronically signed by: Kaz Shelton M.D. 08/31/2019 4:24 PM Dictated: 08/31/191623 Transcribed: 08/31/191623 Code Status & VTE Plan Code Status Full code VTE Prophylaxis Plan VTE Prophylaxis will be ordered: Yes PG Care Time/CCT Total # of Minutes Spent Total Time Spent with Patient: Total time spent is greater than 50% in coordination of care (as documented) at patient's floor/unit and/or counseling patient: Coding Level of Care Code 07475 Initial Inpt Care Lvl 3 Diagnoses Atypical chest pain R07.89 CAD in [place] artery I25.10 Pulmonary embolus I26.99 Asthma J45.909 Depression F32.9 Fibromyalgia M79.7 Hypertension I10 Hypothyroidism E03.9
[2019-08-31] MEDS ORDERED: ACETAMINOPHEN 325 MG TAB PO PRN (22:36)
[2019-08-31] MEDS ORDERED: MAGNESIUM HYDROXIDE SUSP 30 ML UDC PO PRN (22:36)
[2019-08-31] MEDS ORDERED: ONDANSETRON INJ 2 MG/ML 2 ML VIAL IV PRN (22:36)
[2019-08-31] MEDS ORDERED: NYSTATIN/TRIAMCIN OINT 15 GM TUBE EXT PRN (22:36)
[2019-08-31] MEDS ORDERED: HYDROCODONE/ACETAMINOPHEN 10/325 TAB PO PRN (22:36)
[2019-08-31] MEDS ORDERED: NON-FORMULARY MEDICATION (Coenzyme Q10 [Co Q-10] 100 MG) PO SCH (22:36)
[2019-08-31] MEDS ORDERED: BACLOFEN 10 MG TAB PO PRN (22:36)
[2019-08-31] MEDS ORDERED: ALUMINUM/MAGNESIUM SUSP 30 ML UDC PO PRN (22:36)
[2019-08-31] MEDS ORDERED: NITROGLYCERIN SL 0.4 MG/TAB TAB SL PRN (22:36)
[2019-08-31] MEDS ORDERED: FLUTICASONE/VILANTEROL 200/25MCG 14 PUFFS/INHALER INH PRN (22:47)
[2019-08-31] MEDS ORDERED: ZOLPIDEM TARTRATE 10 MG TAB PO PRN (22:50)
[2019-08-31] MEDS ORDERED: CYCLOBENZAPRINE HCL 10 MG TAB PO SCH (23:00)
[2019-08-31] MEDS: APIXABAN 5 MG TABLET PO SCH (23:17)
[2019-08-31] MEDS: CHOLECALCIFEROL 1,000 UNITS 25 MCG TAB PO SCH (23:17)
[2019-09-01] MEDS ORDERED: LEVOTHYROXINE SODIUM 75 MCG TABLET PO SCH (06:30)
[2019-09-01 06:56] LABS: Basophils # (auto) 0.03 K/uL (0-0.2); Basophils % (auto) 0.8 %; Eosinophils # (auto) 0.16 K/uL (0-0.5); Eosinophils % (auto) 4.3 %; Hematocrit (blood only) 34.6 % (37-47); Hemoglobin 11.1 g/dL (12.0-16.0); Immature Granulocytes # (auto) 0.01 K/uL (0.00-0.02); Immature Granulocytes % (auto) 0.3 %; Lymphocytes # (auto) 1.27 K/uL (1.2-3.4); Lymphocytes % (auto) 33.8 %; Mean Corpuscular Hemoglobin 20.3 pg (25-34); Mean Corpuscular Hgb Conc 32.1 g/dL (32-36); Mean Corpuscular Volume 63.3 fL (80-100); Monocytes # (auto) 0.46 K/uL (0.11-0.59); Monocytes % (auto) 12.2 %; Neutrophils # (auto) 1.83 K/uL (1.4-6.5); Neutrophils % (auto) 48.6 %; Platelet Count 199 K/uL (130-400); RDW Coefficient of Variation 18.6 % (11.5-14.5); RDW Standard Deviation 42.1 fL (36.4-46.3); Red Blood Count 5.47 M/uL (4.2-5.4); White Blood Count 3.76 K/uL (4.8-10.8)
[2019-09-01 07:29] LABS: Albumin Level 3.7 gm/dl (3.4-5.0); BUN Creatinine Ratio 23.4 (10-20); Blood Urea Nitrogen 24 mg/dl (7-18); Calcium 9.4 mg/dl (8.5-10.1); Carbon Dioxide 23 mmol/L (21-32); Chloride 107 mmol/L (98-107); Creatinine Clr Calc Pharmacy 54.8 ml/min; Est GFR (African American) 64.7; Est GFR (Non-African American) 55.8; Glucose 99 mg/dl (70-99); Magnesium 1.6 mg/dl (1.8-2.4); Microcytosis Present; Ovalocytes 2+; Polychromasia 1+; Potassium 4.5 mmol/L (3.5-5.1); Schistocytes Occasional; Sodium 137 mmol/L (136-145); Spherocytes Occasional
[2019-09-01 07:34] LABS: Phosphorus 3.7 mg/dl (2.5-4.9); Troponin I < 0.015 ng/ml (0-0.045)
[2019-09-01] MEDS: CHOLECALCIFEROL 1,000 UNITS 25 MCG TAB PO SCH (08:08)
[2019-09-01] MEDS: APIXABAN 5 MG TABLET PO SCH (08:09)
[2019-09-01] MEDS ORDERED: MULTIVITAMIN TAB PO SCH (09:00)
[2019-09-01] MEDS ORDERED: METOPROLOL SUCC 25MG EXT REL TAB PO SCH (09:00)
[2019-09-01] MEDS ORDERED: CLOPIDOGREL BISULFATE 75 MG TAB PO SCH (09:00)
[2019-09-01] MEDS ORDERED: LIOTHYRONINE SODIUM 5 MCG TAB PO SCH (09:00)
[2019-09-01] MEDS ORDERED: FLUOXETINE HCL 20 MG CAP PO SCH (09:00)
[2019-09-01] MEDS ORDERED: MICONAZOLE NITRATE POWDER 43 GM EXT PRN (10:58)
--- NOTE | 2019-09-01 11:09 | Cardiology Consultation ---
Date of Consultation September 01, 2019 Assessment & Plan (1) Dyspnea on exertion: The patient had the abrupt onset of exertional dyspnea approximately 2 days prior to presentation. Fortunately, there is no evidence of pulmonary emboli on her current CT scan. We will perform a dobutamine stress echocardiogram to rule out myocardial ischemia as the etiology. (2) CAD in [place] artery: History of RODGER to the RCA back in 2004. She also had evidence of a significant distal PDA stenosis along with luminal regularities in the LAD. Dobutamine stress test as described above. Continue medical management. (3) Hypertension: Adequate control on current medical regimen. (4) Hypercholesterolemia: Continue atorvastatin. (5) Pulmonary embolism, bilateral: Likely secondary to her recent knee surgery and resultant inactivity. History of Present Illness Attending Physician: Riaz Stallworth MD History of Present Illness Mrs. Whitaker is a 61 female admitted yesterday with progressive exertional dyspne a. This consultation was ordered to assist in her cardiac management. Of note, the patient is well known to me from the outpatient setting. The patient's recent history began on July 09 when she underwent a right meniscectomy for an injury she sustained back in April. Following surgery, the patient was quite sedentary and was noticing significant right lower extremity edema. She had the abrupt onset of exertional dyspnea which was quite profound. She underwent an evaluation at [facility] on August 20 and was found to have bilateral lower extremity DVTs and bilateral PEs. She was hospitalized and placed on heparin. She is eventually transition to oral Eliquis and discharged home. Patient did well until approximately 2 days ago when she began to note significant dyspnea with minimal physical activity. She also noted spontaneous episodes of heartburn. She had an appointment with Dr. Salter yesterday. She explains that she was unable to speak due to profound dyspnea after walking from her car to the help desk team leader in the office. She was told to immediately present to the emergency room home. The patient does carry a history of coronary artery disease. She underwent a cardiac catheterization July 2004 which resulted in and RCA RODGER. She was also found to have luminal irregularities in LAD and a 90% distal PDA stenosis. The patient has done well from a cardiac perspective since that time. Currently, patient is resting comfortably in bed without complaints. Past medical and surgical history 1. Coronary artery disease-see above 2. RCA RODGER-July 2004 3. Hypertension 4. Hypercholesterolemia 5. Diabetes mellitus 6. Factor 5 Leiden mutation, heterozygous 7. Hypothyroidism 8. Chronic renal insufficiency 9. Sarcoidosis 10. Lumbar spinal stenosis 11. Cervical laminectomy 12. History of breast carcinoma 13. Bilateral radical mastectomies 14. Total abdominal hysterectomy 15. Right meniscectomy-June 2019 16. DVT/PE-July 2019 Social history , lives with her . No tobacco or alcohol Family history Noncontributory Review of systems A 10 point review of systems was undertaken and negative except for that described above. Allergies Allergy/AdvReac Type Severity Reaction Status Date / Time nickel Allergy Mild rash Verified 08/31/19 18:45 adhesive Allergy Unknown started Verified 08/31/19 18:45 sarcoidosis up cefazolin Allergy Unknown UNKNOWN Verified 08/31/19 18:45 gabapentin Allergy Unknown Unknown Verified 08/31/19 18:45 nitrofurantoin Allergy Unknown Unknown Verified 08/31/19 18:45 [From Macrobid] pregabalin [From Lyrica] Allergy Unknown Unknown Verified 08/31/19 18:45 tramadol Allergy Unknown ITCH Verified 08/31/19 18:45 ibuprofen Allergy Unknown Verified 08/31/19 18:45 amoxicillin AdvReac Mild diarrhea Verified 08/31/19 18:45 clavulanic acid AdvReac Mild diarrhea Verified 08/31/19 18:45 Home Medications Home Medications Medication Instructions Recorded Confirmed Type cholecalciferol (vitamin D3) 125 5,000 units PO BID cap 04/02/19 08/31/19 History mcg (5,000 unit) capsule enalapril maleate 5 mg tablet 5 mg PO HS #90 tab 04/02/19 08/31/19 History hydroxyzine HCl 50 mg tablet 50 mg PO QID PRN tab 04/02/19 08/31/19 History multivitamin 1 tab PO QAM 04/02/19 08/31/19 History diazepam 10 mg tablet 10 - 20 mg PO UD PRN tab 05/04/19 08/31/19 History metoprolol succinate 25 mg 25 mg PO QAM 05/04/19 08/31/19 History tablet,extended release 24 hr nitroglycerin 0.4 mg sublingual 0.4 mg SL Q5M PRN #30 tab 05/04/19 08/31/19 History tablet hydrocodone 10 mg-acetaminophen 1 tab PO Q4H PRN tab 05/05/19 08/31/19 History 325 mg tablet apixaban 5 mg tablet 5 mg PO BID #180 tab 08/24/19 08/31/19 Rx baclofen 10 mg tablet 10 mg PO TID PRN 08/24/19 08/31/19 History cyclobenzaprine 10 mg tablet 20 mg PO HS #60 tab 08/24/19 08/31/19 Rx esketamine 84 mg (28 mg x 3) nasal 0 mg INTNAS .Q3W 08/24/19 08/31/19 History spray nystatin-triamcinolone 100,000 1 appln TOPICAL BID PRN #60 gm 08/24/19 08/31/19 Rx unit/gram-0.1 % topical ointment atorvastatin 40 mg PO HS 08/31/19 08/31/19 History clopidogrel 75 mg PO QAM 08/31/19 08/31/19 History coenzyme Q10 [Co Q-10] 100 mg PO BID 08/31/19 08/31/19 History fluoxetine [Prozac] 80 mg PO QAM 08/31/19 08/31/19 History fluticasone propion-salmeterol 1 inh INHALATION BID PRN 08/31/19 08/31/19 History [Advair Diskus] levothyroxine 75 mcg PO QAM 08/31/19 08/31/19 History liothyronine 15 mcg PO QAM 08/31/19 08/31/19 History metformin 1,000 mg PO BIDM 08/31/19 08/31/19 History suvorexant 20 mg PO HS 08/31/19 08/31/19 History Patient History Medical History Adenomatous polyp of colon (Acute) Adiposis dolorosa (Acute) Anxiety Asthma (Acute) Bleeding disorder Breast cancer Stage 2A HER+ - rx bilateral mastectomy 2001, 2003 CAD in [place] artery (Acute) Depression (Acute) Endometriosis Factor 5 Leiden mutation, heterozygous Fibroids Fibromyalgia (Acute) Hematuria History of chemotherapy History of radiation therapy Hypercholesterolemia (Acute) Hypertension (Acute) Hypothyroidism (Acute) Insomnia (Acute) Lumbar spinal stenosis (Acute) Mild chronic anemia (Acute) Osteopenia (Acute) Painful intercourse PTSD (post-traumatic stress disorder) [facility] Renal insufficiency (Acute) Sarcoidosis of lung (Acute) Sleep apnea (Acute) Thalassemia syndrome (Acute) Thyroid nodule (Acute) Type 2 diabetes mellitus (Acute) Surgical History S/P cardiac catheterization S/P hysterectomy S/P laminectomy S/P mastectomy S/P rotator cuff repair S/P skin biopsy S/P tonsillectomy Status post wisdom tooth extraction Family History Uncle Colorectal cancer Father Dementia Mother Diabetes Grandmother (Maternal) Breast cancer Grandmother (Paternal) Breast cancer Other Anemia Anxiety Depression Drinking problem Family history of bleeding or clotting disorder Fibroids Gestational diabetes Premature labor Denies family history of Cervical cancer Ovarian cancer Prostate cancer Uterine cancer Social History Preferred Language: Palestinian Communication Ability: Effective Visual Impairment: No Limitations Hearing Ability: Normal Internal Investigator Required: No Beliefs That Will Affect Care: None marital status: Current Living Situation: Spouse current occupational status: unemployed Feels Safe at Home: Yes Smoking Status: Never smoker Hx Alcohol Use: No Hx Substance Use: No Childhood Exposure to Second-Hand Smoke: Yes Dental Care, Regularly: Yes Physical Activity Frequency: Does not Exercise Seatbelt Use: always Physical Exam Physical Exam: In general this is an obese white female in no acute distress. HEENT exam is negative. Neck is supple with full carotid upstrokes. There are no carotid bruits. Jugular venous pressure is flat at 90. There is no thyromegaly. Cardiovascular exam reveals a regular rhythm with a normal S1 and S2. No S3, S4, or murmurs are noted. Lungs are clear without rales, rhonchi, or wheezes. Abdomen is soft and nontender without bruits. Extremities reveal intact radial artery and posterior tibial pulses bilaterally. There is no peripheral edema. Results & Data ([facility]) Vital Signs (Past 12 Hours) Vital Signs Temp Pulse Pulse Resp BP Pulse Ox 09/01/19 08:34 90 09/01/19 03:45 36.3 C L 79 18 127/82 97 Laboratory Results CBC notes hemoglobin 11.1, crit 34.6, white count 3.76, and platelet count of [id number]. Electrolytes notice sodium 137, potassium 4.5, chloride 107, bicarb 23, BUN 24, creatinine 1.03, and a glucose of 99. Four troponins are negative. Diagnostic Findings EKG notes normal sinus rhythm and left axis deviation. There is a nonspecific ST abnormality. Chest x-ray shows no acute disease. CT scan of the chest shows no evidence of pulmonary emboli. PG Care Time/CCT Total # of Minutes Spent Total Time Spent with Patient: Total time spent is greater than 50% in coordination of care (as documented) at patient's floor/unit and/or counseling patient: Coding Level of Care Code 60273 Initial Inpt Care Lvl 3 Diagnoses Dyspnea on exertion R06.09 CAD in [place] artery I25.10 Hypertension I10 Hypercholesterolemia E78.00 Pulmonary embolism, bilateral I26.99
[2019-09-01] MEDS ORDERED: ATROPINE SULFATE 0.1 MG/ML 10ML SYR IV ONE (12:21)
[2019-09-01] MEDS ORDERED: DOBUTamine HCL 12.5 MG/ML 20 ML VIAL IV ONE (12:21)
[2019-09-01] MEDS ORDERED: METOPROLOL TARTRATE 1 MG/ML VIAL IV ONE (12:21)
--- NOTE | 2019-09-01 13:18 | XCELERA ---
[id number] \\[email or web address]\PDF_Reports\[id number]}___[id number].pdf
--- NOTE | 2019-09-01 15:47 | XCELERA ---
[id number] \\MC[employer]CELIBE\PDF_Reports\[id number]}___[id number]
--- NOTE | 2019-09-01 15:59 | Electrocardiogram Report ---
Test Reason : Blood Pressure : / mmHG Vent. Rate : 076 BPM Atrial Rate : 076 BPM P-R Int : 164 ms QRS Dur : 094 ms QT Int : 402 ms P-R-T Axes : 084 -48 062 degrees QTc Int : 452 ms Normal sinus rhythm Left axis deviation Abnormal ECG When compared with ECG of 31-AUG-2019 15:18, QRS axis Shifted left Confirmed by Surinder Ramos ([id number]) on 09/01/2019 3:59:40 PM Referred By: REFERRED SELF Confirmed By:Surinder Ramos
--- NOTE | 2019-09-01 16:34 | Discharge Summary ---
Date of Service September 01, 2019 Admission HPI Per Admitting Provider The patient is a 69-year-old female with a past medical history including factor V Leiden mutation, pulmonary embolism, DVT of left lower extremity, colon polyps, chronic anemia, asthma, CAD and [place] coronary artery, depression, fibromyalgia, hypercholesterolemia, hypertension, hypothyroidism, renal insufficiency, thalassemia syndrome, thyroid nodule and diabetes mellitus type 2. She reports that she had developed severe right leg pain after a recent arthroscopic surgery, and was seen at [facility] emergency department, where she was diagnosed with bilateral PEs and left lower extremity DVT on 08/21/2019. Her symptoms today may be concerned regarding had a PE is redone, but also was concerned regarding possibility of recurrent heart disease. Of note, the patient has been on apixaban since 08/21, and CTA of the chest in the [facility] today is negative for PE. Principal Diagnosis Shortness of breath - Likely non-cardiac in nature Discharge Exam Constitutional WD/WN, vitals as above Eyes EOM intact bilaterally; no conjunctival abnormality ENMT external ear and nose normal, oropharynx normal Neck trachea midline, no thyromegaly normal visual inspection Respiratory normal respiratory effort, lungs clear to auscultation no respiratory distress Cardiovascular RRR, no murmur, no edema Gastrointestinal (Abdomen) Inspection/Auscultation: abdomen normal to inspection; abdomen not distended Musculoskeletal no cyanosis or clubbing, extremities motor strength 5/5 Skin no rashes, warm and dry Neurologic moves all extremities and awake Psychiatric Orientation: alert, oriented to person and cooperative Discharge Data Allergies Allergy/AdvReac Type Severity Reaction Status Date / Time nickel Allergy Mild rash Verified 08/31/19 18:45 adhesive Allergy Unknown started Verified 08/31/19 18:45 sarcoidosis up cefazolin Allergy Unknown UNKNOWN Verified 08/31/19 18:45 gabapentin Allergy Unknown Unknown Verified 08/31/19 18:45 nitrofurantoin Allergy Unknown Unknown Verified 08/31/19 18:45 [From Macrobid] pregabalin [From Lyrica] Allergy Unknown Unknown Verified 08/31/19 18:45 tramadol Allergy Unknown ITCH Verified 08/31/19 18:45 ibuprofen Allergy Unknown Verified 08/31/19 18:45 amoxicillin AdvReac Mild diarrhea Verified 08/31/19 18:45 clavulanic acid AdvReac Mild diarrhea Verified 08/31/19 18:45 Consultations 08/31/19 19:50 ED Decision to Admit Stat 08/31/19 22:36 Consult Cardiology Routine Consult Case Management - Discharge Planning Routine Ordered Studies 08/31/19 16:16 CT angio chest PE protocol Stat Hospital Course (1) Atypical chest pain: Shortness of breath was more the issue than chest pain. -> Troponins negative. Dobutamine stress echo was normal. Cardiology felt this was non- cardiac in nature. - On discharge, she felt her shortness of breath had improved. We walked around the 2nd floor, and she maintained good pulse oximetry and had a HR ~100 bpm. She did not have much shortness of breath then. - Will follow up with Dr. Felix and use her albuterol inhaler when short of breath. She had not been using her Advair inhaler, and I encouraged her to do so as well. (2) CAD in [place] artery: As above (3) Pulmonary embolus: Patient was diagnosed with bilateral pulmonary emboli and right lower extremity DVT on 08/21/2019. - She was started on apixaban at that time, is presently on 5 mg p.o. twice daily. - CTA chest is negative for PE at this time. (4) Asthma: Continue Advair Diskus (5) Depression: Depression/fibromyalgia- Continue baclofen, cyclobenzaprine, diazepam, fluoxetine, hydroxyzine and suvorexant. (6) Fibromyalgia: See above (7) Hypertension: See above (8) Hypothyroidism: Continue levothyroxine 75 mcg and liothyronine 15 mcg daily Total Time Total Time Spent Total Time Spent (In Minutes): 35 Discharge Plan Discharge Items Patient Disposition: Home - Self-Care Reason For Visit: CHEST PAIN Discharge Diagnosis: Shortness of breath - Non-cardiac in nature Activity: Resume your previous activity Non-emergency contact: Primary Care Provider and [employer] Tender Call non-emergency contact if: your symptoms worsen and your pain is not controlled Follow-up/Referrals: ,Surinder Grande MD [Primary Care Provider] - Diet: Heart Healthy Addtl Attending Provider Instructions: You were admitted for shortness of breath. We were worried about an atypical cardiac symptom given your cardiac history. Fortunatley, you did not have any heart attack, and your stress echo looked normal. We do not think your heart is involved. You did mention that you had sarcoidosis during your chemotherapy. I do not think this is getting worse as we did not see evidence of this on our CT scans. We did a walk test around the hospital, and your oxygen levels stayed stable at 96-98% during the entire walk. You also didn't feel very short of breath with out walk. Your heart rate went up to ~100 beats per minute which is probably pretty normal given you just had knee surgery and a pulmonary embolism. Please follow up with Dr. Felix if the shortness of breath continues or gets worse. You may need breathing tests that can be done in Dr. Felix's office. Pending Studies at Discharge: No Stand-Alone Forms: My [facility] [employer], Smoking Cessation Medications and DC Order Prescriptions: Continued cyclobenzaprine 10 mg tablet 20 mg PO HS Qty: 60 RF: 0 multivitamin [Daily Multi-Vitamin] tablet 1 tab PO QAM RF: 0 hydroxyzine HCl 50 mg tablet 50 mg PO QID PRN (Reason: Itching) RF: 0 enalapril maleate 5 mg tablet 5 mg PO HS Qty: 90 RF: 0 cholecalciferol (vitamin D3) 5,000 unit capsule 5,000 units PO BID RF: 0 diazepam 10 mg tablet 10 - 20 mg PO UD PRN (Reason: anxiety) RF: 0 nitroglycerin 0.4 mg tablet, sublingual 0.4 mg SL Q5M PRN (Reason: chest pain) Qty: 30 RF: 0 hydrocodone-acetaminophen 10-325 mg tablet 1 tab PO Q4H PRN (Reason: Pain) RF: 0 metoprolol succinate [Toprol XL] 25 mg tablet extended release 24 hr 25 mg PO QAM RF: 0 baclofen 10 mg tablet 10 mg PO TID PRN (Reason: .) RF: 0 esketamine 84 mg (28 mg x 3) spray,non-aerosol 0 mg INTNAS .Q3W RF: 0 nystatin-triamcinolone 100,000-0.1 unit/gram-% ointment 1 appln topical BID PRN (Reason: rash) Qty: 60 RF: 6 apixaban 5 mg tablet 5 mg PO BID Qty: 180 RF: 3 fluoxetine [Prozac] 40 mg capsule 80 mg PO QAM RF: 0 fluticasone propion-salmeterol [Advair Diskus] 500-50 mcg/dose Blister With Device 1 inh INHALATION BID PRN (Reason: Shortness Of Breath) RF: 0 suvorexant 20 mg Tablet 20 mg PO HS RF: 0 atorvastatin 40 mg tablet 40 mg PO HS RF: 0 metformin 500 mg tablet 1,000 mg PO BIDM RF: 0 clopidogrel 75 mg tablet 75 mg PO QAM RF: 0 liothyronine 5 mcg tablet 15 mcg PO QAM RF: 0 levothyroxine 75 mcg tablet 75 mcg PO QAM RF: 0 coenzyme Q10 [Co Q-10] 200 mg capsule 100 mg PO BID RF: 0 Discharge Orders: Discharge Order (Routine); Ordered 09/01/19 Ordered By: Riaz Mahan/Other Patient Handouts: Hyperglycemia, Hypoglycemia, Blood Sugar Check Admission Data Admit Date/Time: 08/31/19 21:13 Attending Provider: Riaz Stallworth Admit Provider: Holden Dixon Primary Care Provider: Surinder Curry Other Providers: Surinder Ramos ; Riaz Stallworth Coding Level of Care Code 51101 OBS Care - Discharge Diagnoses Atypical chest pain R07.89 CAD in [place] artery I25.10 Pulmonary embolus I26.99 Asthma J45.909 Depression F32.9 Fibromyalgia M79.7 Hypertension I10 Hypothyroidism E03.9
[2019-09-01] MEDS ORDERED: ATORVASTATIN 40 MG TAB PO SCH (21:00)
== END 2019-09-01 18:15 | disposition home or self-care (01) ==
LOC: 2N 14:51 → ED 14:51 → SUATTDRO 21:13 → 2N 22:23